=== PATIENT | female | born 2005 | race Hispanic/Latino ===

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

== ENCOUNTER 2024-05-27 22:07 | Observation (INO) | payer MEDICAID ==
[~2024-05-27] VITALS: Ht 157.5 cm; Wt 59.9 kg
[2024-05-27 22:11] VITALS: BP 122/68; PULSE 103; RESP 20; TEMP 98.5
--- NOTE | 2024-05-27 22:29 | NUR ---
REPORT GIVEN TO MED AT [facility]. PT IN STABLE CONDITION FOR TRANSPORT TO UNIT.
[2024-05-27] MEDS ORDERED: LACTATED RINGERS 1000ML 1,000 ML IV SCH (22:30)
[2024-05-27 22:53] LABS: APPEARANCE,URINE CLEAR (CLEAR); BILIRUBIN,URINE NEGATIVE (NEGATIVE); COLOR,URINE LIGHT-YELLOW (YELLOW); GLUCOSE, URINE (UA) NEGATIVE (NEGATIVE); KETONES,URINE NEGATIVE (NEGATIVE); LEUKOCYTE ESTERASE ,URINE NEGATIVE Leu/uL (NEGATIVE); NITRATE,URINE NEGATIVE (NEGATIVE); OCCULT BLOOD,URINE NEGATIVE (NEGATIVE); PROTEIN,URINE NEGATIVE (NEGATIVE); UROBILINOGEN,URINE 0.2 mg/dL (0.2-1.0)
[2024-05-27 22:56] LABS: ADD UA MICROSCOPIC YES
[2024-05-27 22:58] LABS: MUCUS,URINE RARE LPF (None Seen); RBC,URINE 0-1 /HPF (0-1); SQUAMOUS EPITHELIAL CELL,UR RARE /HPF (0-2)
[2024-05-27] MEDS ORDERED: PROMETHAZINE HCL 25 MG/ML 1ML AMPULE IM PRN (23:30)
[2024-05-27] MEDS ORDERED: MEPERIDINE-PF 50 MG/ML SYG IVP PRN (23:30)
[2024-05-27 23:58] LABS: HEMATOCRIT 36.3 % (36-48); MEAN CORPUSCULAR HEMOGLOBIN 30.2 pg (27.0-33.0); MEAN CORPUSCULAR HGB CONC 33.1 g/dL (32.0-36.0); MEAN CORPUSCULAR VOLUME 91.4 fL (80-100); RED BLOOD CELL COUNT(AUTO) 3.97 MIL/uL (4.00-5.50); RED CELL DISTRIBUTION WIDTH 13.2 % (11.0-15.5)
[2024-05-28 00:36] LABS: HIV 1&2 ANTIBODY Non-Reactive (Negative)
[2024-05-28 00:37] LABS: HIV-1 p24 Antigen Non-Reactive (Negative)
[2024-05-29 15:44] LABS: RAPID PLASMA REAGIN NONREACTIVE (NONREACTIVE)
== END 2024-05-28 07:59 | disposition home or self-care (01) ==
LOC: EDH 22:07 → OBSVTOIN 22:24 → INTOOBSV 22:24 → LDH 22:24
PROVIDERS: ADMIT Obstetrics & Gynecology; ATTEND Obstetrics & Gynecology
DX: O26.893 Other specified pregnancy related conditions, third trimester (principal); R10.9 Unspecified abdominal pain; N89.8 Other specified noninflammatory disorders of vagina; O99.891 Other specified diseases and conditions complicating pregnancy; M54.9 Dorsalgia, unspecified; Z79.899 Other long term (current) drug therapy; Z3A.38 38 weeks gestation of pregnancy
CPT/HCPCS: 86900; 86592; 96372; 85027; 86850; 86901; 87340; 86701; 87390; 81001; 36415 ×2; G0378; J3105